=== PATIENT | female | born 1995 | race Caucasian/White ===

== ENCOUNTER 2017-04-26 07:57 | Emergency (ER) | payer OTHER ==
[~2017-04-26] VITALS: Ht 157.5 cm; Wt 94.6 kg
[2017-04-26] MEDS ORDERED: LORAZEPAM 1 MG TAB PO STA (07:59)
[2017-04-26 08:01] VITALS: TEMP 36.6; Ht 157.5 cm; Wt 94.6 kg
--- NOTE | 2017-04-26 08:20 | DIAGNOSTIC IMAGING REPORT ---
CHEST ONE VIEW PORTABLE CLINICAL HISTORY: Fever. Sepsis. COMPARISON STUDY: No previous studies for comparison. FINDINGS: Lung volumes are normal. There is no pneumothorax or pleural effusion. Cardiac size is normal. Mediastinal contours are normal. There is no evidence for pulmonary edema. No consolidation is identified. IMPRESSION: No acute cardiopulmonary findings. Electronically signed by: Nicholas Rose M.D. 04/26/2017 8:18 AM Dictated Date/Time: 04/26/2017 8:18 AM
[2017-04-26] MEDS ORDERED: LORAZEPAM 2 MG/ML 1 ML VIAL IV STA (08:31)
[2017-04-26] MEDS ORDERED: ONDANSETRON INJ 2 MG/ML 2 ML VIAL IV STA (08:31)
[2017-04-26 08:33] LABS: ISTAT CREATININE 0.7 mg/dl (0.6-1.3); ISTAT IONIZED CALCIUM 1.08 mmol/l (1.12-1.32); ISTAT POTASSIUM 3.8 mEq/L (3.3-5.0)
[2017-04-26] MEDS ORDERED: ZIPR1CAP6 PO (08:33)
[2017-04-26] MEDS ORDERED: BUPR-79 PO (08:33)
[2017-04-26] MEDS ORDERED: ESCI10TA17 PO (08:33)
--- NOTE | 2017-04-26 08:42 | EMERGENCY ROOM VISIT NOTE ---
History Report prepared by Pedro: Manuel Yang Under the Supervision of: Dr. Gael Christian D.O. First contact with patient: 07:55 Stated Complaint: PALPITATIONS/LIP NUMBNESS History of Present Illness The patient is a 21 year old female who presents to the Emergency Room with complaints of heart palpitations that started 6 hours ago. The patient reports she was drinking heavily and that the alcohol interacted with her medications. She states she had a panic attack and she complains of SOB, tingling lips, and diaphoresis. She states she is on Lexapro, Wellbutrin, and Geodon and has a history of a panic attacks. Source of History: patient Onset: 6 hours ago Position: other (global) Timing: constant Associated Symptoms: + diaphoresis, + chest pain (heart palpitations), + SOB Note: Patient complains of tingling lips. Review of Systems See HPI for pertinent positives & negatives. A total of 10 systems reviewed and were otherwise negative. Social History Smoking Status: Never Smoker Smokeless Tobacco Use: No Alcohol Use: occasionally Drug Use: none Occupation Status: student (college drop out) Current/Historical Medications Scheduled Bupropion (Wellbutrin Sr), 450 MG PO DAILY Escitalopram (Lexapro), 10 MG PO DAILY Ziprasidone Hcl (Geodon), 40 MG PO BID Allergies Coded Allergies: Nickel (Unverified Adverse Reaction, Unknown, UNKNOWN, 04/26/17) Physical Exam Vital Signs Date Time Temp Pulse Resp B/P (MAP) Pulse Ox O2 Delivery O2 Flow Rate FiO2 04/26/17 08:01 36.6 117 18 153/87 95 Room Air 04/26/17 08:00 112 Physical Exam CONSTITUTIONAL/VITAL SIGNS: Reviewed / noted above. GENERAL: Non-toxic in appearance. INTEGUMENTARY: Warm, dry, and [place]. HEAD: Normocephalic. EYES: without scleral icterus or trauma. ENT/OROPHARYNX: clear and moist. LYMPHADENOPATHY/NECK: Is supple without lymphadenopathy or meningismus. RESPIRATORY: Lungs clear and equal. CARDIOVASCULAR: Tachycardia and rhythm. GI/ABDOMEN: Soft and nontender. No organomegaly or pulsatile mass. No rebound or guarding. Normal bowel sounds. EXTREMITIES: Warm and well perfused. BACK: No CVA tenderness. NEUROLOGICAL: Intact without focal deficits. PSYCHIATRIC: normal affect. MUSCULOSKELETAL: Normally developed with good muscle tone. Medical Decision & Procedures ER Provider Diagnostic Interpretation: Radiology results as stated below per my review and radiologist interpretation: CHEST ONE VIEW PORTABLE CLINICAL HISTORY: Fever. Sepsis. COMPARISON STUDY: No previous studies for comparison. FINDINGS: Lung volumes are normal. There is no pneumothorax or pleural effusion. Cardiac size is normal. Mediastinal contours are normal. There is no evidence for pulmonary edema. No consolidation is identified. IMPRESSION: No acute cardiopulmonary findings. Electronically signed by: Nicholas Rose M.D. 04/26/2017 8:18 AM Dictated Date/Time: 04/26/2017 8:18 AM Laboratory Results Test 04/26/17 08:20 Bedside Hemoglobin 13.3 g/dl (12.0-16.0) Bedside Hematocrit 39 % (37-47) Bedside Sodium 144 mEq/L (135-144) Bedside Potassium 3.8 mEq/L (3.3-5.0) Bedside Chloride 110 mEq/L (101-112) Bedside Total CO2 21 mEq/l (24-31) Anion Gap 17.0 mmol/L (16-25) Bedside Blood Urea Nitrogen 5 mg/dl (7-18) Bedside Creatinine 0.7 mg/dl (0.6-1.3) Bedside Glucose (other) 113 mg/dl (70-99) Bedside Ionized Calcium (Юлия) 1.08 mmol/l (1.12-1.32) Laboratory results as stated above per my review. Medications Administered Medications (Trade) Dose Ordered Sig/Amanda Route Start Time Stop Time Status Last Admin Dose Admin Lorazepam (Ativan Tab) 1 mg NOW STAT PO 04/26/17 07:59 04/26/17 08:01 DC 04/26/17 08:19 1 MG Ondansetron HCl (Zofran Inj) 4 mg NOW STAT IV 04/26/17 08:31 04/26/17 08:32 DC 04/26/17 08:42 4 MG Lorazepam (Ativan Inj) 0.5 mg NOW STAT IV 04/26/17 08:31 04/26/17 08:32 DC 04/26/17 08:42 0.5 MG ECG Indication: palpitations Rate (beats per minute): 99 Rhythm: normal sinus Findings: no ectopy, other (no acute injury) Change: Patient's EKG interpreted by me. ED Course 0758: Previous medical records were reviewed. The patient was evaluated in room B3. A complete history and physical examination was performed. 0800: Ativan Tab, 1 mg PO. 0832: Ativan Inj .5 mg IV, Zofran Inj 4mg IV. 0905: On reevaluation, the patient is doing well. I discussed the results and findings with the patient. She verbalized agreement of the treatment plan. She was discharged home. Medical Decision the differential was considered includes acute myocardial infarction, acute coronary syndrome, myocarditis, pericarditis, pericardial effusions /tamponad, esophageal perforation, thoracic aortic dissection, pulmonary embolism, pneumonia, pneumothorax, pancreatitis, shingles, acute cholecystitis, perforated abdominal viscus. This is a 21-year-old female who presents to the ED with a chief complaint of a panic attack. The patient states that she had too much to drink last night. She awoke this morning feeling that her heart was pounding and that she couldn' t breathe. She states that her lips became tingly. The patient stopped drinking around 1 AM. She does report a history of panic attacks. She is currently taking Wellbutrin, Lexapro and Geodon. The patient's physical exam is unremarkable. She is slightly tachycardic. Her vital signs are stable. Hemoglobin and chemistry panel was normal. Chest x-ray did not show acute disease. EKG shows a normal sinus rhythm at a rate of 99 without acute injury or ectopy. The patient was treated initially with oral Ativan but vomited. She was then given Zofran 4 mg IV and Ativan 0. 5 mg IV. The patient was told the results of the test. She was feeling better. She is felt to be stable for discharge. Medication Reconcilliation Current Medication List: was personally reviewed by me Blood Pressure Screening Patient's blood pressure: Elevated blood pressure Blood pressure disposition: Elevated BP felt to be situational Impression Primary Impression: Acute anxiety Scribe Attestation The scribe's documentation has been prepared under my direction and personally reviewed by me in its entirety. I confirm that the note above accurately reflects all work, treatment, procedures, and medical decision making performed by me. Departure Information Dispostion Home / Self-Care Additional Instructions Follow-up with your doctor for further care and evaluation in 1-2 days. Return to the emergency department for worsening or new symptoms or any concerns. You have been examined and treated today on an emergency basis only. This is not a substitute for, or an effort to provide, complete comprehensive medical care. It is impossible to recognize and treat all injuries or illnesses in a single emergency department visit. It is therefore important that you follow up closely with your doctor. Call as soon as possible for an appointment. Avoid excessive alcohol consumption.
[2017-04-26 09:20] VITALS: BP 139/88; PULSE 106; O2SAT 98
== END 2017-04-26 09:21 | disposition home or self-care (01) ==
LOC: C.EDB 07:58
DX: F41.9 Anxiety disorder, unspecified (principal)